=== PATIENT | male | born 1940 | race Caucasian/White ===

== ENCOUNTER 2018-09-17 23:16 | Observation (INO) ==
[2018-09-17] MEDS ORDERED: Morphine Inj 4 MG/ML Vial IV.PUSH ONE (23:43)
--- NOTE | 2018-09-17 23:46 | ED ---
HPI General Chief complaint: Abdominal Pain Stated complaint: Bowel Obstruction Time Seen by Provider: 09/17/18 23:45 Source: patient Mode of arrival: ambulatory Limitations: no limitations History of Present Illness HPI narrative: 77yo M with PMH of indwelling lester catheter, afib on coumadin, colon cancer s/p resection, peripheral neuropathy, umbilical hernia, history of small bowel obstructions, here with c/o nausea, vomiting and abdominal pain today. Pt was seen here yesterday for urinary complaints and did not have any abdominal pain or vomiting. Last bowel movement was yesterday. He was discharge and felt fine until late morning today. Started vomiting and having pain in right mid abdomen where his hernia popped out. Denies any fever, chest pain, sob, focal weakness or numbness. Related Data Home Medications Medication Instructions Recorded Confirmed buspirone 20 mg PO BID 09/16/18 09/17/18 citalopram [Celexa] 20 mg PO DAILY 09/16/18 09/17/18 diazepam 2.5 mg PO BID 09/16/18 09/17/18 diltiazem HCl [Cardizem CD] 240 mg PO DAILY 09/16/18 09/17/18 fluticasone-vilanterol [Breo 1 inh INHALATION DAILY 09/16/18 09/17/18 Ellipta] guaifenesin [Mucinex] 1,200 mg PO Q12H 09/16/18 09/17/18 warfarin 4 mg PO HS 09/16/18 09/17/18 Previous Rx's Medication Instructions Recorded ciprofloxacin HCl 500 mg PO Q12HR #14 tab 09/18/18 Allergies Allergy/AdvReac Type Severity Reaction Status Date / Time diphenhydramine Allergy Severe Extrapyramidal Verified 09/17/18 23:33 [From Benadryl] Syndrome metoclopramide [From Reglan] Allergy Severe Extrapyramidal Verified 09/18/18 00: 46 Syndrome midazolam [From Versed] Allergy Severe Extrapyramidal Verified 09/17/18 23:33 Syndrome promethazine Allergy Severe Extrapyramidal Verified 09/17/18 23:33 Syndrome Review of Systems ROS: all other systems reviewed are negative [facility] Medical History Medical History Bowel obstruction (Acute) Hypertension (Acute) Afib (Acute) Asthma (Acute) CKD (chronic kidney disease) (Acute) Colon cancer (Acute) Urinary retention (Acute) Surgical History Surgical History History of cataract surgery (Acute) History of cholecystectomy (Acute) History of colostomy reversal (Acute) Family History Family History Other No pertinent family history Social History Social History Substance History: No History of Abuse Second Hand Smoke Exposure: No Smoking Status: Former smoker Tobacco Type: Cigarettes Number of Pack-Years (if former smoker): 25 How Often Do You Have a Drink Containing Alcohol: Never Recent Travel in [facility] within the Last 8 Weeks: No Recent Out of Country Travel within the Last 8 Weeks: No Immunization History Tetanus Immunization: >5 Years Exam Narrative Exam Narrative: GENERAL: 77yo M in mild distress. SKIN: Focused skin assessment warm/dry. HEAD: Atraumatic. Normocephalic. EYES: Pupils equal and round. No scleral icterus. No injection or drainage. ENT: No nasal bleeding or discharge. Mucous membranes pink and moist. NECK: Trachea midline. No JVD. CARDIOVASCULAR: Regular rate and rhythm. No murmur appreciated. RESPIRATORY: No accessory muscle use. Clear to auscultation. Breath sounds equal bilaterally. GASTROINTESTINAL: Abdomen soft, +TTP right mid abdomen. Able to reduce part of the hernia in right mid abdomen but not completely. No rebound tenderness or guarding. MUSCULOSKELETAL: No obvious deformities. No clubbing. No cyanosis. No edema. NEUROLOGICAL: Awake and alert. No obvious cranial nerve deficits. Motor grossly within normal limits. Normal speech. PSYCHIATRIC: Appropriate mood and affect; insight and judgment normal. Course Initial Documented Vital Signs Temperature 97.5 F L 09/17/18 23:23 Pulse Rate 60 09/17/18 23:23 Respiratory Rate 18 09/17/18 23:23 Blood Pressure 143/67 H 09/17/18 23:23 Pulse Oximetry 99 09/17/18 23:23 Last Documented Vital Signs Temperature 96.1 F L 09/18/18 02:47 Pulse Rate 69 09/18/18 02:47 Respiratory Rate 18 09/18/18 02:47 Blood Pressure 146/67 H 09/18/18 02:47 Pulse Oximetry 92 L 09/18/18 02:47 Sign Out Sign Out Data: Patient Sign Out occurred on 09/18/18 at 00:21. Patient's care was discussed, and care was transferred from Yuli Chahal DO to Ashely Wallace MD. Sign Out Comment: 77 yo M with nausea, vomiting and abdominal pain that started today. Has an umbilical hernia that fully reducible. Seen at end of shift, will need to follow up with labs, CT a/p and reattempt reduction after pain medication. Last updated by Yuli Chahal DO at 09/18/18 00:11 Post-Handoff Eval: Accepted in transfer of care Medical Decision Making MDM Narrative Medical decision making narrative: 77yo M with history of hernia, small bowel obstruction, colon ca s/p resection and reversal of ileostomy here with vomiting , nausea and right abdominal pain that started today. Pt was seen at the end of my shift and sign out to Dr. Wallace to follow up labs, CT a/p. Pt place in trendelenburg and she also tried to reduce the hernia. Will place ice on it, give morphine and try again after but will also obtain CT a/p. Patient accepted in transfer of care for follow-up of pending labs and CT. At 2 AM patient again complains of abdominal pain given additional dose of morphine sulfate 3 mg IV total white cell count is 5000 without left shift platelet count mildly depressed at 144,000 this is decreased from 1 66,000 yesterday patient continues to have 74% neutrophils by automated differential renal function appears unchanged with BUN of 36 and creatinine 1.6 near baseline patient is close to therapeutic range on warfarin with INR of 1.9 CT abdomen pelvis shows very small pericardial effusion otherwise no acute findings on lower lung good by CT abdomen pelvis left kidney is markedly atrophic with hydronephrotic sac right kidney has a 4 cm cyst but no evidence of hydronephrosis no hydroureter aorta shows no acute abnormality is otherwise okay patient is identified to have a right lower quadrant hernia defect containing some small bowel that is nondilated no dilated loops of bowel and no evidence of bowel obstruction per reading radiologist. This information is shared with the patient with family at bedside. In view of patient having ongoing intermittent abdominal pain and nausea after multiple doses of antiemetic and 2 doses of morphine sulfate recommend seen and antiemetic management. Patient discussed in detail with Dr. Villa regarding history of previous colon cancer with partial nephrectomy previous small bowel obstruction ventral hernia with out herniorrhaphy previous cholecystectomy abdominal pain times 1 day with episodes of nausea vomiting and dry heaves now with CT imaging showing no evidence of bowel obstruction or inflammatory stranding volvulus intussusception or ileus. Patient also with chronic indwelling urinary catheter with chronic recurrent urinary tract infections currently on oral antibiotic which he has been tolerating fairly well with preliminary urine culture identified gram-negative yvette organisms will require ongoing antibiotic therapy is on warfarin therapy with near therapeutic range INR 1.94 history of atrial fibrillation chronic kidney disease and asthma without current exacerbation. Per Dr Villa will OBS admit to [facility] for abdominal pain w/o strangulated or incarcerated ventral hernia, SBO or ileus and no obvious hx/ex for ischemic bowel and for intractable nausea. Patient and family at bedside informed of observation plan and are agreeable. Medical Screen Exam Complete: Yes Emergency Medical Condition: Yes Differential Diagnosis Differential Diagnosis: Small bowel obstruction vs. incarcerated hernia Lab Data Result diagrams: 09/18/18 00:00 09/18/18 00:00 Lab Results 09/18/18 09/18/18 09/18/18 Range/Units 00:00 00:00 00:00 CBC w Diff Auto diff final WBC 5.7 (4.0-11.0) th/mm3 RBC 4.65 (4.50-5.90) mil/mm3 Hgb 13.4 (13.0-17.0) gm/dL Hct 41.4 (39.0-51.0) % MCV 88.9 (80.0-100.0) fL MCH 28.9 (27.0-34.0) pg MCHC 32.5 (32.0-36.0) % RDW 15.4 (11.6-17.2) % Plt Count 144 L (150-450) th/mm3 MPV 9.6 (7.0-11.0) fL Neut % (Auto) 74.8 H (16.0-70.0) % Lymph % (Auto) 10.4 (9.0-44.0) % Bates % (Auto) 11.5 H (0.0-8.0) % Eos % (Auto) 2.2 (0.0-4.0) % Baso % (Auto) 1.1 (0.0-2.0) % Neut # (Auto) 4.2 (1.8-7.7) th/mm3 Lymph # (Auto) 0.6 L (1.0-4.8) th/mm3 Bates # (Auto) 0.7 (0.0-0.9) th/mm3 Eos # (Auto) 0.1 (0.0-0.4) th/mm3 Baso # (Auto) 0.1 (0.0-0.2) th/mm3 WBC Differential . Differential Comment . PT 19.1 H (9.8-11.6) sec INR 1.9 Ratio APTT 37.5 H (23.4-31.7) sec Sodium 131 L (136-145) meq/L Potassium 5.0 (3.5-5.1) meq/L Chloride 101 (98-107) meq/L Carbon Dioxide 23.9 (21.0-32.0) meq/L Anion Gap 6 (5-15) meq/L BUN 36 H (7-18) mg/dL Creatinine 1.60 H (0.60-1.30) mg/dL Estimated GFR 42 L (>89) mL/min Random Glucose 86 (74-106) mg/dL Calcium 8.2 L (8.5-10.1) mg/dL Total Bilirubin 0.3 (0.2-1.0) mg/dL AST 24 (15-37) U/L ALT 21 (12-78) U/L Alkaline Phosphatase 121 H (45-117) U/L Total Protein 6.9 (6.4-8.2) g/dL Albumin 3.2 L (3.4-5.0) g/dL Lipase 56 L (73-393) U/L Imaging Data Radiologist's impression: Abdomen/Pelvis CT 09/18/18 01:10 CONCLUSION: No acute CT findings in the abdomen or pelvis. Discharge Plan Discharge Disposition Patient Disposition: ED Admit(ED Internal Use Only) Discharge Condition Condition: Stable Discharge Order Discharge Orders: Discharge Order (Routine); Ordered 09/18/18 Ordered By: Chin Negron ED Use Only Admit Order (Routine); Ordered 09/18/18 Ordered By: Ashely Wallace Discharge Details Anticipated Discharge Date: 09/18/18 Discharge Comment: Okay to discharge patient if he tolerates diet without any recurrent nausea, vomiting or abdominal pain. Diagnosis: Abdominal pain, Intractable nausea and vomiting, Ventral hernia without obstruction or gangrene Physicians Team ED Provider: Ashely Wallace Primary Care Provider: Vitaliy Falcon Attending Provider: Evans Falcon Status ED Status: Left Department Discharge Information Discharge Date/Time: 09/18/18 02:48
[2018-09-18] MEDS ORDERED: Metoclopramide Inj 10 MG in Sodium Chlor 0.9% Inj 50 ML IV.SIG ONE (00:14)
[2018-09-18 00:15] LABS: Baso # (Auto) 0.1 th/mm3 (0.0-0.2); Baso % (Auto) 1.1 % (0.0-2.0); Eos # (Auto) 0.1 th/mm3 (0.0-0.4); Eos % (Auto) 2.2 % (0.0-4.0); Hematocrit 41.4 % (39.0-51.0); Hemoglobin 13.4 gm/dL (13.0-17.0); Lymph # (Auto) 0.6 th/mm3 (1.0-4.8); Lymph % (Auto) 10.4 % (9.0-44.0); Mean Corpuscular HGB Conc 32.5 % (32.0-36.0); Mean Corpuscular Hemoglobin 28.9 pg (27.0-34.0); Mean Corpuscular Volume 88.9 fL (80.0-100.0); Mean Platelet Volume 9.6 fL (7.0-11.0); Mono # (Auto) 0.7 th/mm3 (0.0-0.9); Mono % (Auto) 11.5 % (0.0-8.0); Neut # (Auto) 4.2 th/mm3 (1.8-7.7); Neut % (Auto) 74.8 % (16.0-70.0); Platelet Count 144 th/mm3 (150-450); Red Blood Count 4.65 mil/mm3 (4.50-5.90); Red Cell Distribution Width 15.4 % (11.6-17.2); White Blood Count 5.7 th/mm3 (4.0-11.0)
[2018-09-18 00:31] LABS: Chloride 101 meq/L (98-107); Sodium 131 meq/L (136-145)
[2018-09-18 00:34] LABS: Calcium 8.2 mg/dL (8.5-10.1)
[2018-09-18 00:35] LABS: Albumin 3.2 g/dL (3.4-5.0); Anion Gap 6 meq/L (5-15); Blood Urea Nitrogen 36 mg/dL (7-18); Carbon Dioxide 23.9 meq/L (21.0-32.0); Glucose,Random 86 mg/dL (74-106); Lipase 56 U/L (73-393)
[2018-09-18 00:38] LABS: Alanine Aminotransferase 21 U/L (12-78); Aspartate Aminotransferase 24 U/L (15-37); Glomerular Filtration Rate 42 mL/min (>89)
[2018-09-18 00:40] LABS: Total Protein 6.9 g/dL (6.4-8.2)
[2018-09-18 00:41] LABS: Alkaline Phosphatase 121 U/L (45-117)
[2018-09-18 01:25] LABS: Activated Partial Thrombo Time 37.5 sec (23.4-31.7); INR 1.9 Ratio; Prothrombin Time 19.1 sec (9.8-11.6)
[2018-09-18] MEDS ORDERED: Morphine Inj 4 MG/ML Vial IV.PUSH ONE (01:34)
--- NOTE | 2018-09-18 01:40 | CT ---
EXAM DATE: 09/18/2018 1:11 AM EST AGE/SEX: 77 years / Male INDICATIONS: Bowel obstruction. CLINICAL DATA: This is the patient's initial encounter. Patient reports that signs and symptoms have been present for 1 day and indicates a pain score of 2/10. MEDICAL/SURGICAL HISTORY: . Atrial fibrillation. Bowel obstruction. Chronic kidney disease. Col on cancer. Urinary retention. Cholecystectomy. Colostomy reversal. ORAL CONTRAST: No oral contrast ingested. RADIATION DOSE: 20.77 CTDI (mGy) COMPARISON: No prior exams available for comparison. TECHNIQUE: Multiple contiguous axial images were obtained through the abdomen and pelvis following b olus infusion of 95 ml Omnipaque 350 (iohexol) nonionic water-soluble contrast as a single exam dos e. No oral contrast ingested. Using automated exposure control and adjustment of the mA and/or kV ac cording to patient size, radiation dose was kept as low as reasonably achievable to obtain optimal di agnostic quality images. DICOM format image data is available electronically for review and comparis on. FINDINGS: Lower Lungs: Atelectasis or infiltrate in the posterior lung bases. Cardiac enlargement with small pe ricardial effusion. Liver: The liver has a homogeneous density without space-occupying lesion. There is no dilation of th e biliary tree. Gallbladder surgically absent. Spleen: Homogeneous density without enlargement. Pancreas: Unremarkable without mass or calcification. Kidneys: The left kidney is a severely atrophic massively hydronephrotic sac, appearance clearly padilla te chronic. The right kidney is notable for a slightly greater than 4 cm cyst arising in the anterior mid to lower pole cortex. No suspicious mass or hydronephrosis. Adrenal Glands: Unremarkable. Aorta: The aorta and proximal iliac vessels are grossly unremarkable without aneurysmal dilation. Bowel/Mesentery: Likely rectal anastomosis. Bowel structures are nondilated without definite focal i nflammatory change or wall thickening. Right lower quadrant hernia defect containing multiple loops o f nondilated bowel Abdominal Wall: Right lower quadrant spigelian or postoperative hernia containing loops of nondilate d colon. Retroperitoneum: No evidence of adenopathy in the retrocrural, para-aortic, or deep pelvic regions. Bladder: Decompressed with Veras catheter Reproductive Organs: No abnormal masses or calcifications seen. Inguinal: The inguinal region is unremarkable without evidence of adenopathy. Bony Structures: Unremarkable. CONCLUSION: No acute CT findings in the abdomen or pelvis. Electronically signed by: Jovan Cabrera MD Board Certified Radiologist 09/18/2018 1:39 AM EST
[2018-09-18] MEDS ORDERED: Acetaminophen 325 MG Tablet PO PRN (02:03)
[2018-09-18] MEDS ORDERED: Bisacodyl 10 MG Supp RECTAL PRN (02:03)
[2018-09-18] MEDS ORDERED: Morphine Inj 4 MG/ML Vial IV.PUSH PRN (02:03)
[2018-09-18] MEDS ORDERED: Sod Chloride 0.9% Inj 1,000 ML IV.CONT SCH (02:15)
[2018-09-18] MEDS ORDERED: GUAIFENESIN 1200 MG PO SCH (02:15)
[2018-09-18 02:48] VITALS: BP 146/67; PULSE 69; RESP 18; TEMP 96.1; O2SAT 92
[2018-09-18] MEDS ORDERED: dilTIAZem CD 240 MG Capsule PO SCH (09:00)
[2018-09-18] MEDS ORDERED: Citalopram 20 MG Tablet PO SCH (09:00)
[2018-09-18] MEDS ORDERED: diazePAM 5 MG Tablet PO SCH (09:00)
[2018-09-18] MEDS ORDERED: guaiFENesin 600 MG ER Tablet PO SCH (09:00)
[2018-09-18] MEDS ORDERED: Senna/Docusate Sodium 8.6/50 MG Tablet PO SCH (09:00)
--- NOTE | 2018-09-18 10:24 | P.HPIM ---
History of Present Illness Primary Care Physician: Vitaliy Falcon DO Chief Complaint: Abdominal pain with nausea vomiting History of Present Illness: 77-year-old male with known history of hypertension, chronic atrial fibrillation, urinary retention, chronic kidney disease, history of bowel obstructions, history of colon cancer, recurrent pain from abdominal hernia. Patient was in his normal state of health until approximately 4 days ago when he started developing generalized weakness which progressively got worse so he came to the hospital at that time and was evaluated by ER physician. Patient found to have urinary tract infection in a patient with chronic urinary retention and chronic indwelling Veras. Patient was notified to continue to take the Bactrim that he was already taking at home and if he was to develop any other symptoms such as pain, nausea, vomiting he should return to the hospital for evaluation. On the next day the patient did come back to the hospital because of abdominal pain with nausea and vomiting. Patient indicates that he does have history of recurrent abdominal pain secondary to surgical hernia. He states that he gets this discomfort approximate 1 time monthly. Patient is usually from [place], however he does have a primary medical doctor, urologist here in the area. He does not have a surgeon in the area. Upon seeing the patient has morning he is asymptomatic. Denies any continued abdominal pain. Denies any recurrent nausea or vomiting. States that he is usually not a breakfast eater. However he plans on trying to eat lunch. Review of records also indicate that the culture from his urinalysis shows Enterobacter cloacae which is resistant to the Bactrim. Patient denies any hematemesis, diarrhea, constipation, melena, hematochezia, chest pain, shortness of breath, dyspnea. Diagnosis (1) Intractable nausea and vomiting: (2) Abdominal pain: Review of Systems Review of Systems: all other systems reviewed are negative Gastrointestinal: Reports abdominal pain, Reports nausea and Reports vomiting [facility] Medical History Medical History Bowel obstruction (Acute) Hypertension (Acute) Afib (Acute) Asthma (Acute) CKD (chronic kidney disease) (Acute) Colon cancer (Acute) Urinary retention (Acute) Surgical History Surgical History History of cataract surgery (Acute) History of cholecystectomy (Acute) History of colostomy reversal (Acute) Family History Family History Other No pertinent family history Social History Social History Substance History: No History of Abuse Second Hand Smoke Exposure: No Smoking Status: Former smoker Tobacco Type: Cigarettes Number of Pack-Years (if former smoker): 25 How Often Do You Have a Drink Containing Alcohol: Never Recent Travel in [facility] within the Last 8 Weeks: No Recent Out of Country Travel within the Last 8 Weeks: No Immunization History Tetanus Immunization: >5 Years Medications and Allergies Allergies Allergy/AdvReac Type Severity Reaction Status Date / Time diphenhydramine Allergy Severe Extrapyramidal Verified 09/17/18 23:33 [From Benadryl] Syndrome metoclopramide [From Reglan] Allergy Severe Extrapyramidal Verified 09/18/18 00: 46 Syndrome midazolam [From Versed] Allergy Severe Extrapyramidal Verified 09/17/18 23:33 Syndrome promethazine Allergy Severe Extrapyramidal Verified 09/17/18 23:33 Syndrome Home Medications Medication Instructions Recorded Confirmed Type buspirone 20 mg PO BID 09/16/18 09/17/18 History citalopram [Celexa] 20 mg PO DAILY 09/16/18 09/17/18 History diazepam 2.5 mg PO BID 09/16/18 09/17/18 History diltiazem HCl [Cardizem CD] 240 mg PO DAILY 09/16/18 09/17/18 History fluticasone-vilanterol [Breo 1 inh INHALATION DAILY 09/16/18 09/17/18 History Ellipta] guaifenesin [Mucinex] 1,200 mg PO Q12H 09/16/18 09/17/18 History sulfamethoxazole-trimethoprim 1 tab PO BID 09/16/18 09/17/18 History [Bactrim DS] warfarin 4 mg PO HS 09/16/18 09/17/18 History Active Medications: Active Medications Acetaminophen (Tylenol) 650 mg PO Q4H PRN PRN Reason: Temp > 100.4 Al Hydroxide/Mg Hydroxide (Milk Of Magnesia Liq) 30 ml PO Q12H PRN PRN Reason: Mild Constipation Bisacodyl (Dulcolax Supp) 10 mg RECTAL DAILY PRN PRN Reason: SEVERE CONSITIPATION Buspirone HCl (Buspar) 20 mg PO BID DYAN Citalopram Hydrobromide (Celexa) 20 mg PO DAILY DYAN Diazepam (Valium) 2.5 mg PO BID DYAN Diltiazem HCl (Cardizem Cd 24hr) 240 mg PO DAILY [facility] Fluticasone/Vilanterol (Breo Ellipta 100/25 Mcg Inh) 1 puff INH DAILY [facility] Guaifenesin (Mucinex Er) 1,200 mg PO Q12HR [facility] Sodium Chloride (Ns Inj) 1,000 mls @ 100 mls/hr IV.CONT .Q10H [facility] Last Admin: 09/18/18 02:30 Dose: 100 mls/hr Lactulose (Lactulose Liq) 30 ml PO DAILY PRN PRN Reason: SEVERE CONSITIPATION Morphine Sulfate (Morphine Inj) 4 mg IV.PUSH Q4H PRN PRN Reason: PAIN SCALE 6 TO 10 Ondansetron HCl (Zofran Inj) 4 mg IV.PUSH Q6H PRN PRN Reason: NAUSEA OR VOMITING Senna/Docusate Sodium (Purvi-Colace) 1 tab PO BID [facility] Sennosides (Senokot) 17.2 mg PO Q12H PRN PRN Reason: Moderate Constipation Sodium Chloride (Ns Flush) 2 ml IV.FLUSH BID [facility] Sodium Chloride (Ns Flush) 2 ml IV.FLUSH PRN PRN PRN Reason: FLUSH AFTER USING IV ACCESS Trimethoprim/Sulfamethoxazole (Bactrim Ds) 1 tab PO BID [facility] Warfarin Sodium (Coumadin) 4 mg PO HS [facility] Physical Exam Vital signs: Vital Signs 09/17/18 23:23 09/18/18 01:10 09/18/18 01:54 Temperature 97.5 F L Pulse Rate 60 63 68 Respiratory Rate 18 16 16 Blood Pressure 143/67 H 186/92 H 134/62 Pulse Oximetry 99 98 98 09/18/18 02:47 Temperature 96.1 F L Pulse Rate 69 Respiratory Rate 18 Blood Pressure 146/67 H Pulse Oximetry 92 L Intake & Output 09/17/18 09/18/18 09/18/18 18:59 06:59 18:59 Intake Total 20 / 20 Output Total 0 / 0 Balance / 20 Weight 83.1 kg Intake: IV 20 / 20 Reglan Inj 10 MG In NS Inj 50 20 / 20 ML @ 104 mls/hr IV.SIG ONCE ONE Rx#:[id number] Output: Urine 0 / 0 Other: Weight On Admission 83.1 kg Narrative: GENERAL: Well-developed, well-nourished, in no acute distress. alert and orientated HEENT: Head is normocephalic without any lesions or masses noted. Facial features are symmetric. Eyes: Pupils equal round reactive to light. Extraocular muscles are intact. Conjunctivae were clear. Oropharyngeal: Pharynx without any erythema edema. Tongue is midline without deviation. Buccal mucosa is moist without any masses or lesions. Hard of hearing NECK: Supple without any masses. Trachea midline no deviation. No JVD, no bruits are appreciated CARDIAC: Regular rhythm, regular rate. S1/S2 are heard. No murmurs gallops or rubs. LUNGS: Clear to auscultation bilaterally. No wheeze, rhonchi or rales. No use of accessory muscles on inspiration or expiration. ABDOMEN: Soft, nontender. Nondistended. Bowel sounds heard in all 4 quadrants. No organomegaly or masses. Negative rebound, negative guarding. Multiple scars noted on the abdomen EXTREMITIES: No edema, pulses are equal bilaterally. No cyanosis or clubbing NEUROLOGY: Mood and affect appear appropriate. Cranial nerves II through XII grossly intact. Muscle strength 5/5 in upper and lower extremities bilaterally. Deep tendon reflexes are 2+ in upper and lower extremities bilaterally. Urinary Catheter Management Indwelling Urethral Catheter: Cath placed during this visit: no Reason for continuing: Chronic Urinary Retention Results Labs CBC & Chem 7: 09/18/18 00:00 09/18/18 00:00 Imaging Impressions Abdomen/Pelvis CT 09/18/18 01:10 CONCLUSION: No acute CT findings in the abdomen or pelvis. Caprini VTE Risk Assessment Caprini VTE Risk Assessment: Moderate/High Risk (score >= 2) Caprini Risk Assessment Model: Point Value = 1 Point Value = 2 Point Value = 3 Point Value = 5 Age 41-60 Minor surgery BMI > 25 kg/m2 Swollen legs Varicose veins or History of unexplained or recurrent spontaneous Oral contraceptives or hormone replacement Sepsis (< 1 month) Serious lung disease, including pneumonia (< 1 month) Abnormal pulmonary function Acute myocardial infarction Congestive heart failure (< 1 month) History of inflammatory bowel disease Medical patient at bed rest Age 61-74 Arthroscopic surgery Major open surgery (> 45 min) Laparoscopic surgery (> 45 min) Malignancy Confined to bed (> 72 hours) Immobilizing plaster cast Central venous access Age >= 75 History of VTE Family history of VTE Factor V Leiden Prothrombin [id number] Lupus anticoagulant Anticardiolipin antibodies Elevated serum homocysteine Heparin-induced thrombocytopenia Other congenital or acquired thrombophilia Stroke (< 1 month) Elective arthroplasty Hip, pelvis, or leg fracture Acute spinal cord injury (< 1 month) Prophylaxis Regimen: Total Risk Factor Score Risk Level Prophylaxis Regimen 0-1 Low Early ambulation 2 Moderate Order ONE of the following: *Sequential Compression Device (SCD) *Heparin 5000 units SQ BID 3-4 Higher Order ONE of the following medications: *Heparin 5000 units SQ TID *Enoxaparin/Lovenox 40 mg SQ daily (WT < 150 kg, CrCl > 30 mL/min) *Enoxaparin/Lovenox 30 mg SQ daily (WT < 150 kg, CrCl > 10-29 mL/min) *Enoxaparin/Lovenox 30 mg SQ BID (WT < 150 kg, CrCl > 30 mL/min) AND/OR *Sequential Compression Device (SCD) 5 or more Highest Order ONE of the following medications: *Heparin 5000 units SQ TID (Preferred with Epidurals) *Enoxaparin/Lovenox 40 mg SQ daily (WT < 150 kg, CrCl > 30 mL/min) *Enoxaparin/Lovenox 30 mg SQ daily (WT < 150 kg, CrCl > 10-29 mL/min) *Enoxaparin/Lovenox 30 mg SQ BID (WT < 150 kg, CrCl > 30 mL/min) AND *Sequential Compression Device (SCD) Assessment and Plan (1) Intractable nausea and vomiting: Code(s): R11.2 - Nausea with vomiting, unspecified Status: Acute (2) Abdominal pain: Code(s): R10.9 - Unspecified abdominal pain Status: Acute Plan Abdominal pain with nausea and vomiting, resolved Laboratory studies were relatively unremarkable for any acute etiology CT scan did not indicate any etiology of the patient's abdominal pain Could be secondary to urinary tract infection, use of Bactrim Continue IV fluids Advance diet as tolerated Complicated urinary tract infection Reviewed recent culture which was Enterobacter cloacae that was resistant to Bactrim Discontinue Bactrim Start Cipro Hypertension, chronic atrial fibrillation, chronic urinary retention Continue home medications Patient anticoagulated with Coumadin, will need to monitor closely with the starting of Cipro Patient is a follow-up with urologist for chronic urinary retention Chronic kidney disease stage III Continue monitor renal functions Avoid nephrotoxins DVT prevention Patient is on Coumadin Sequential compression devices Discussed Condition With: Patient, nursing care, Dr. Falcon Discharge Planning: Anticipate discharge home if tolerates diet without any recurrent abdominal pain, nausea, vomiting Discharge home in stable condition Activity: Ad teetee. Diet: Healthy heart diet Medication per medication reconciliation Follow-up with primary medical doctor in 1 week H&P: Quality VTE Deep Vein Thrombosis/Pulmonary Embolism Present on Admission: No _ (1) Intractable nausea and vomiting Qualifiers: Vomiting type: unspecified Qualified Code(s): R11.2 - Nausea with vomiting, unspecified (2) Abdominal pain Qualifiers: Abdominal location: generalized Qualified Code(s): R10.84 - Generalized abdominal pain
[2018-09-18] MEDS ORDERED: Ciprofloxacin 500 MG Tablet PO SCH (11:00)
== END 2018-09-18 15:40 | disposition home or self-care (01) ==
LOC: PHED 23:16 → PHEDA 23:16 → PH3 09-18 02:37
PROVIDERS: ADMIT Hospitalist; ATTEND Hospitalist
DX: F17.210 Nicotine dependence, cigarettes, uncomplicated; N18.3 Chronic kidney disease, stage 3 (moderate); J45.909 Unspecified asthma, uncomplicated; Z79.01 Long term (current) use of anticoagulants; Z79.51 Long term (current) use of inhaled steroids; N39.0 Urinary tract infection, site not specified; G62.9 Polyneuropathy, unspecified; Z90.49 Acquired absence of other specified parts of digestive tract; I48.2 Chronic atrial fibrillation; C18.9 Malignant neoplasm of colon, unspecified; R11.2 Nausea with vomiting, unspecified; I12.9 Hypertensive chronic kidney disease with stage 1 through stage 4 chronic kidney disease, or unspecified chronic kidney disease; K43.9 Ventral hernia without obstruction or gangrene
CPT/HCPCS: 74177; 80053; 83690; 85025; 85610; 85730; 90774; 90775; 90776; 96374; 96375; 96376; 99285; C8952; G0378; J2270; J2405; J2765; J7030; Q9967